=== PATIENT | female | born 1990 | race African-American/Black ===

== ENCOUNTER 2025-05-13 07:58 | Emergency (ER) | payer OTHER, SELFPAY ==
--- OUTSIDE RECORDS SUMMARY | 2025-05-13 08:04 | XMS REPORT | Continuity of Care Document ---
Author Name Unknown Address [address] [facility] [address] [place] [address] [facility] Address [address] [facility] [address] [place] [address] Care Team Providers Care Deck Builder Name Role Phone Earline Franco Primary Care Physician Medications Ordered Medication Name Filled Medication Name Start Date Stop Date Current Medication? Ordering Clinician Indication Dosage Frequency Signature (SIG) Comments Components Source Provera 10 mg tablet 03-05 00:00: 00 Yes 1mg Vincent Fajardo Provera 10 mg tablet 8-28 00:00: 00 Yes 1mg Vincent Fajardo Provera 10 mg tablet 01-03 00:00: 00 Yes 1mg Vincent Fajardo TAKE 1 TABLET TWICE DAILY UNTIL FINISHED. 6-30 00:00: 00 09-24 00:00 :00 No 500 Vincent Fajardo TAKE ONE (1) TABLET(S) BY MOUTH NOW A SINGLE DOSE. IF SYMPTOMS PERSIST AFTER 3 DAYS, MAY TAKE SECOND TABLET. 11-16 00:00: 00 Yes Vincent Fajardo Immunizations Ordered Immunization Name Filled Immunization Name Date Status Comments Source Td (adult) preservative Td (adult) preservative 2024-07-17 00:00:00 Completed Vincent Fajardo Vital Signs Vital Name Observation Time Observation Value Comments Robert bowie BP Systolic 2025-03-05 17:55:00 145 mm[Hg] Jerry Fajardo BP Diastolic 2025-03-05 17:55:00 75 mm[Hg] Bob Fajardo Weight Measured 2025-03-05 17:55:00 174.80 pounds Vincent Fajardo Height Measured 2025-03-05 17:55:00 61.00 inches Vincent F Scotty Body Temperature 2025-03-05 17:55:00 98.10 degrees Vincent F Scotty Heart Rate 2025-03-05 17:55:00 73.00 /min Ny en F Scotty Respiratory Rate 2025-03-05 17:55:00 14.00 /min Vincent F Scotty BP Systolic 2024-07-17 09:29:00 128 mm[Hg] Step hen F Scotty BP Diastolic 2024-07-17 09:29:00 83 mm[Hg] Bob phen F Scotty Weight Measured 2024-07-17 09:29:00 177.20 pounds Vincent F Scotty Height Measured 2024-07-17 09:29:00 61.00 inches Vincent F Scotty Body Temperature 2024-07-17 09:29:00 98.50 degrees Vincent F Scotty Heart Rate 2024-07-17 09:29:00 77.00 /min Ny en F Scotty Respiratory Rate 2024-07-17 09:29:00 17.00 /min Vincent F Scotty BP Systolic 2024-04-02 17:50:00 123 mm[Hg] Step hen F Scotty BP Diastolic 2024-04-02 17:50:00 73 mm[Hg] Bob phen F Scotty Weight Measured 2024-04-02 17:50:00 179.60 pounds Vincent F Scotty Height Measured 2024-04-02 17:50:00 61.00 inches Vincent F Scotty Body Temperature 2024-04-02 17:50:00 98.30 degrees Vincent F Scotty Heart Rate 2024-04-02 17:50:00 64.00 /min Ny en F Scotty Respiratory Rate 2024-04-02 17:50:00 18.00 /min Vincent F Scotty Respiratory Rate 2024-01-18 08:11:00 18.00 /min Vincent F Scotty BP Systolic 2024-01-18 08:11:00 137 mm[Hg] Step hen F Scotty BP Diastolic 2024-01-18 08:11:00 67 mm[Hg] Bob phen F Scotty Weight Measured 2024-01-18 08:11:00 177.60 pounds Vincent F Scotty Height Measured 2024-01-18 08:11:00 61.00 inches Vincent F Scotty Body Temperature 2024-01-18 08:11:00 98.20 degrees Vincent F Scotty Heart Rate 2024-01-18 08:11:00 69.00 /min Ny en F Scotty BP Systolic 2024-01-04 11:24:00 141 mm[Hg] Step hen F Scotty BP Diastolic 2024-01-04 11:24:00 92 mm[Hg] Bob phen F Scotty Weight Measured 2024-01-04 11:24:00 180.40 pounds Vincent F Scotty Height Measured 2024-01-04 11:24:00 61.00 inches Vincent F Scotty Body Temperature 2024-01-04 11:24:00 Vincent F Scotty Heart Rate 2024-01-04 11:24:00 75.00 /min Ny en F Scotty Respiratory Rate 2024-01-04 11:24:00 Vincent F Scotty Heart Rate 2023-02-02 08:25:00 65.00 /min Ny en F Scotty Respiratory Rate 2023-02-02 08:25:00 Vincent F Scotty BP Systolic 2023-02-02 08:25:00 127 mm[Hg] Step hen F Scotty BP Diastolic 2023-02-02 08:25:00 82 mm[Hg] Bob phen F Scotty Weight Measured 2023-02-02 08:25:00 160.80 pounds Vincent F Scotty Height Measured 2023-02-02 08:25:00 61.00 inches Vincent F Scotty Body Temperature 2023-02-02 08:25:00 98.70 degrees Vincent F Scotty BP Systolic 2022-12-08 08:10:00 120 mm[Hg] Step hen F Scotty BP Diastolic 2022-12-08 08:10:00 79 mm[Hg] Bob phen F Scotty Weight Measured 2022-12-08 08:10:00 168.80 pounds Vincent F Scotty Height Measured 2022-12-08 08:10:00 61.00 inches Vincent F Scotty Body Temperature 2022-12-08 08:10:00 98.30 degrees Vincent F Scotty Heart Rate 2022-12-08 08:10:00 71.00 /min Ny en F Scotty Respiratory Rate 2022-12-08 08:10:00 Vincent F Scotty BP Systolic 2022-12-01 08:56:00 133 mm[Hg] Step hen F Scotty BP Diastolic 2022-12-01 08:56:00 81 mm[Hg] oBb Fajardo Weight Measured 2022-12-01 08:56:00 169.20 pounds Vincent Fajardo Height Measured 2022-12-01 08:56:00 61.00 inches Vincent Fajardo Body Temperature 2022-12-01 08:56:00 99.00 degrees Vincent Fajardo Heart Rate 2022-12-01 08:56:00 98.00 /min Ny Fajardo Respiratory Rate 2022-12-01 08:56:00 Vincent Fajardo Encounters Start Date/Time End Date/Time Encounter Type Admission Type Attending [facility] Care Department Encounter ID Source 2025-03-05 17:50:04 2025-03-05 17:50:04 Outpatient SFA SFA [id number] Vincent Fajardo 2025-03-05 00:00:00 2025-03-05 00:00:00 Outpatient Visit SFA [id number] Vincent Fajardo 2024-07-17 09:22:23 2024-07-17 09:22:23 Outpatient SFA [id number] [id number] Vincent Fajardo 2024-07-17 00:00:00 2024-07-17 00:00:00 Outpatient Visit SFA [id number] Vincent Fajardo 2024-04-02 17:44:09 2024-04-02 17:44:09 Outpatient SFA [id number] [id number] Vincent Fajardo 2024-04-02 00:00:00 2024-04-02 00:00:00 Outpatient Visit SFA [id number] Vincent Fajardo 2024-01-18 08:03:40 2024-01-18 08:03:40 Outpatient SFA [id number] [id number] Vincent Fajardo 2024-01-18 00:00:00 2024-01-18 00:00:00 Outpatient Visit SFA [id number] Vincent Fajardo Results Test Description Test Time Test Comments Results Result Co mments Source Vincent FajardoLIPID [id number] 00:00:00* Test Item Value Reference Range Interpretation Comme nts CHOLESTEROL (test code = 2210) 126 MG/DL TRIGLYCERIDES (test code = 2232) 52 MG/DL HDL CHOLESTEROL (test code = 2220) 62 MG/DL CALC LDL CHOL (test code = 2237) 51 MG/DL RISK RATIO LDL/HDL (test cod e = 2238) 0.82 RATIO Vincent FajardoHIV 1/2 4TH GEN, RFLX [id number] 00:00:00* Test Item Value Reference Range Interpretation Comme khushbu HIV 1/2 4TH GEN, RFLX CONF ( test code = 3514) NON-REACTIVE Vincent FajardoHEPATITIS PROFILE (A,B,C)2024-07-18 00:00:00* Test Item Value Reference Range Interpretation Comme nts HEPATITIS A TOTAL AB (test c ode = 2725) REACTIVE HEPATITIS B SURF AG (test co de = 2739) NON-REACTIVE HEP B CORE TOTAL AB (test co de = 2729) NON-REACTIVE HEPATITIS B SURFACE AB (test code = 2737) REACTIVE HEPATITIS C ANTIBODY (test c ode = 4675) NON-REACTIVE INTERPRETATION HEPATITIS A: (test code = 2552) (NOTE) INTERPRETATION HEPATITIS B: (test code = 56058) (NOTE) INTERPRETATION HEPATITIS C: (test code = 09883) (NOTE) Vincent FajardoRPR REFLEX TO T. PALLIDUM - [id number] 00:00:00* Test Item Value Reference Range Interpretation Comme nts RPR (test code = 89351) NON-REACTIVE RPR TITER (test code = 3500) NOT INDIC. TITER Vincent FajardoHEPATITIS A IgM [REFLEX]2024-07-18 00:00:00* Test Item Value Reference Range Interpretation Comme nts HEPATITIS A IgM (test code = 2728) NON-REACTIVE Vincent FajardoCOMPREHENSIVE METABOLIC [id number] 00:00:00* Test Item Value Reference Range Interpretation Comme nts GLUCOSE (test code = 2217) 92 MG/DL BUN (test code = 2208) 8 MG/DL CREATININE (test code = 2214) 0.65 MG/DL eGFR (2020 CKD-EPI) (test code = 28539) 119 ML/MIN/1.73 CALC BUN/CREAT (test code = 2235) 12 RATIO SODIUM (test code = 2231) 140 MEQ/L POTASSIUM (test code = 2228) 4.6 MEQ/L CHLORIDE (test code = 2215) 104 MEQ/L CARBON DIOXIDE (test code = 2206) 24 MEQ/L CALCIUM (test code = 2209) 9.4 MG/DL PROTEIN, TOTAL (test code = 2229) 6.9 G/DL ALBUMIN (test code = 2201) 4.3 G/DL CALC GLOBULIN (test code = 2240) 2.6 G/DL CALC A/G RATIO (test code = 2234) 1.7 RATIO BILIRUBIN, TOTAL (test code = 2207) 0.4 MG/DL ALKALINE PHOSPHATASE (test code = 4) 64 U/L AST (test code = 2218) 16 U/L ALT (test code = 2219) 10 U/L Vincent Adair TEST, THINPREP, [id number] 16:32:10* Test Item Value Reference Range Interpretation Comme nts SOURCE: (test code = 8001) Cervical/Endo cervical SLIDES: (test code = 8011) 1 LMP: (test code = 8021) 12/08/2022 SPECIMEN ADEQUACY: (test code = 85462) (NOTE) Satisfactory for evaluation. Endocervical cells/transformation zone component present. INTERPRETATION: (test code = 46904) NILM/NO EPITH. ABNORMALITY;S EE BELOW -- ---- NEGATIVE FOR INTRAEPITHELIAL LESION OR MALIGNANCY Reactive cellular changes present (NILM). OTHER COMMENTS: (test code = 8081) (NOTE) Trichomonas v aginalis present. SINGLE STAYER OPERATOR: (test code = 8101) ABE Lechuga(ASCP) IAC PATHOLOGIST INTERPRETATION BY: (test code = 8122) Tia Evans LOCATION: (test code = 60417) (NOTE) Specimens proces sed and interpreted at [facility], [address] [place] [address], , CLIA: [id number] CPT: (test code = 8140) (NOTE) 79404, 34086 UNL ESS OTHERWISE INDICATED, COMPUTER AIDED AND SINGLE STAYER OPERATOR SCREENING PERFORMED. The Pap test is a screening test with an inherent, but low probability of error. Your patient should be reminded to consult you immediately if she experiences any suspicious signs or symptoms, regardless of her Pap test result. An alternate report format containing images or consolidated prior Pap history is available as applicable. HPV HIGH RISK WITH GENOTYPE, [id number] 16:25:07* Test Item Value Reference Range Interpretation Comme nts HPV HIGH RISK INTERP (test code = 26818) NEGATIVE NEGATIVE HPV 16 (test code = 38875) NEGATIVE HPV 18 (test code = 37039) NEGATIVE HPV, HR, OTHER GENOTYPES (test code = 75492) NEGATIVE Testing methodol ogy is real-time PCR utilizing hydrolysis probes with the Paulina Mary Ellen 4800 system. The test individually detects genotypes 16 and 18, as well as the other 12 high risk types (31,33,35,39,45,51,52,56 ,58,59,66,68). The expected result is negative. A negative result does not rule out the presence of HPV not included in the genotype set, a low level of infection or specimen sampling error. UNLESS OTHERWISE INDICATED, ALL TESTING PERFORMED AT [facility] [address] [place] [address] [employer] DRIVER/TEACHER ASSISTANT: ASHANTI GARCIA M.D. CLIA NUMBER [id number] [place] [id number] PAP TEST, THINPREP, [id number] 00:00:00* Test Item Value Reference Range Interpretation Comme nts SOURCE: (test code = 8001) Cervical/Endo cervic al SLIDES: (test code = 8011) 1 LMP: (test code = 8021) 12/08/2022 SPECIMEN ADEQUACY: (test code = 17230) (NOTE) INTERPRETATION: (test code = 11213) NILM/NO EPITH. ABNORMALITY;SEE BELOW OTHER COMMENTS: (test code = 8081) (NOTE) SINGLE STAYER OPERATOR: (test code = 8101) ABE Lechuga(ASCP)[facility] PATHOLOGIST INTERPRETATION BY: (test code = 8122) Tia Evans LOCATION: (test code = 28122) (NOTE) CPT: (test code = 8140) (NOTE) Vincent Yu AustinHPV HIGH RISK WITH GENOTYPE, [id number] 00:00:00* Test Item Value Reference Range Interpretation Comme nts HPV HIGH RISK INTERP (test c ode = 46657) NEGATIVE HPV 16 (test code = 75398) NEGATIVE HPV 18 (test code = 48522) NEGATIVE HPV, HR, OTHER GENOTYPES (te st code = 27714) NEGATIVE PDFE (test code = PDFReport) PDF Vincent FajardoPAP TEST, THINPREP, [id number] 00:00:00* Test Item Value Reference Range Interpretation Comme nts SOURCE: (test code = 8001) Cervical/Endo cervic al SLIDES: (test code = 8011) 1 LMP: (test code = 8021) 12/08/2022 SPECIMEN ADEQUACY: (test code = 79738) (NOTE) INTERPRETATION: (test code = 39145) NILM/NO EPITH. ABNORMALITY;SEE BELOW OTHER COMMENTS: (test code = 8081) (NOTE) SINGLE STAYER OPERATOR: (test code = 8101) ABE Lechuga(ASCP)[facility] PATHOLOGIST INTERPRETATION BY: (test code = 8122) Tia Evans LOCATION: (test code = 31905) (NOTE) CPT: (test code = 8140) (NOTE) Vincent Yu AustinHPV HIGH RISK WITH GENOTYPE, [id number] 00:00:00* Test Item Value Reference Range Interpretation Comme nts HPV HIGH RISK INTERP (test c ode = 88188) NEGATIVE HPV 16 (test code = 49994) NEGATIVE HPV 18 (test code = 21222) NEGATIVE HPV, HR, OTHER GENOTYPES (te st code = 65363) NEGATIVE PDFE (test code = PDFReport) PDF Vincent FajardoPAP TEST, THINPREP, [id number] 00:00:00* Test Item Value Reference Range Interpretation Comme nts SOURCE: (test code = 8001) Cervical/Endo cervic al SLIDES: (test code = 8011) 1 LMP: (test code = 8021) 12/08/2022 SPECIMEN ADEQUACY: (test code = 58556) (NOTE) INTERPRETATION: (test code = 94376) NILM/NO EPITH. ABNORMALITY;SEE BELOW OTHER COMMENTS: (test code = 8081) (NOTE) SINGLE STAYER OPERATOR: (test code = 8101) ABE Lechuga(ASCP)IAC PATHOLOGIST INTERPRETATION BY: (test code = 8122) Tia Evans LOCATION: (test code = 39896) (NOTE) CPT: (test code = 8140) (NOTE) Vincent FajardoHPV HIGH RISK WITH GENOTYPE, [id number] 00:00:00* Test Item Value Reference Range Interpretation Comme nts HPV HIGH RISK INTERP (test c ode = 96497) NEGATIVE HPV 16 (test code = 30940) NEGATIVE HPV 18 (test code = 16624) NEGATIVE HPV, HR, OTHER GENOTYPES (te st code = 33486) NEGATIVE PDFE (test code = PDFReport) PDF Vincent FajardoPAP TEST, THINPREP, [id number] 00:00:00* Test Item Value Reference Range Interpretation Comme nts SOURCE: (test code = 8001) Cervical/Endo cervic al SLIDES: (test code = 8011) 1 LMP: (test code = 8021) 12/08/2022 SPECIMEN ADEQUACY: (test code = 53061) (NOTE) INTERPRETATION: (test code = 13700) NILM/NO EPITH. ABNORMALITY;SEE BELOW OTHER COMMENTS: (test code = 8081) (NOTE) SINGLE STAYER OPERATOR: (test code = 8101) ABE Lechuga(ASCP)IAC PATHOLOGIST INTERPRETATION BY: (test code = 8122) Tia Evans LOCATION: (test code = 98843) (NOTE) CPT: (test code = 8140) (NOTE) Vincent FajardoHPV HIGH RISK WITH GENOTYPE, [id number] 00:00:00* Test Item Value Reference Range Interpretation Comme nts HPV HIGH RISK INTERP (test c ode = 73387) NEGATIVE HPV 16 (test code = 02019) NEGATIVE HPV 18 (test code = 57764) NEGATIVE HPV, HR, OTHER GENOTYPES (te st code = 80245) NEGATIVE PDFE (test code = PDFReport) PDF Vincent Yu AustinCT/NG, TMA, [id number] 00:00:00* Test Item Value Reference Range Interpretation Comme nts CHLAMYDIA, NAAT, URINE (test code = 45244) NEGATIVE GONORRHEA, NAAT, URINE (test code = 45803) NEGATIVE Vincent Yu AustinCT/NG, TMA, [id number] 00:00:00* Test Item Value Reference Range Interpretation Comme nts CHLAMYDIA, NAAT, URINE (test code = 06123) NEGATIVE GONORRHEA, NAAT, URINE (test code = 45153) NEGATIVE Vincent FajardoCT/NG, TMA, [id number] 00:00:00* Test Item Value Reference Range Interpretation Comme nts CHLAMYDIA, NAAT, URINE (test code = 24984) NEGATIVE GONORRHEA, NAAT, URINE (test code = 69741) NEGATIVE Vincent Yu AustinCT/NG, TMA, [id number] 00:00:00* Test Item Value Reference Range Interpretation Comme nts CHLAMYDIA, NAAT, URINE (test code = 41294) NEGATIVE GONORRHEA, NAAT, URINE (test code = 37149) NEGATIVE Vincent [id number] 00:00:00* Test Item Value Reference Range Interpretation Comme nts RPR RESULT (test code = 3501) NON-REACTIVE RPR TITER (test code = 3500) NOT INDIC. TITER Vincent FajardoACUTE HEPATITIS [id number] 00:00:00* Test Item Value Reference Range Interpretation Comme nts HEPATITIS A IgM (test code = 63099) NON-REACTIVE HEPATITIS B CORE IgM (test c ode = 4644) NON-REACTIVE HEPATITIS B SURF AG (test co de = 2739) NON-REACTIVE HEPATITIS C ANTIBODY (test c ode = 4617) NON-REACTIVE INTERPRETATION HEPATITIS A: (test code = 2552) (NOTE) INTERPRETATION HEPATITIS B: (test code = 23863) (NOTE) INTERPRETATION HEPATITIS C: (test code = 39258) (NOTE) Vincent FajardoVAGINAL PATHOGENS DNA PANEL [ADDED]2023-02-03 00:00:00* Test Item Value Reference Range Interpretation Comme nts JJ SPECIES (test code = ) NEGATIVE G. VAGINALIS (test code = 86344) NEGATIVE T. VAGINALIS (test code = 62223) POSITIVE Vincent FajardoHIV 1/2 4TH GEN, RFLX [id number] 00:00:00* Test Item Value Reference Range Interpretation Comme nts HIV 1/2 4TH GEN, RFLX CONF ( test code = 3514) NON-REACTIVE Vincent [id number] 00:00:00* Test Item Value Reference Range Interpretation Comme nts RPR RESULT (test code = 3501) NON-REACTIVE RPR TITER (test code = 3500) NOT INDIC. TITER Vincent FajardoACUTE HEPATITIS [id number] 00:00:00* Test Item Value Reference Range Interpretation Comme nts HEPATITIS A IgM (test code = 39401) NON-REACTIVE HEPATITIS B CORE IgM (test c ode = 4644) NON-REACTIVE HEPATITIS B SURF AG (test co de = 2739) NON-REACTIVE HEPATITIS C ANTIBODY (test c ode = 4675) NON-REACTIVE INTERPRETATION HEPATITIS A: (test code = 2552) (NOTE) INTERPRETATION HEPATITIS B: (test code = 71249) (NOTE) INTERPRETATION HEPATITIS C: (test code = 91247) (NOTE) Vincent Yu AustinVAGINAL PATHOGENS DNA PANEL [ADDED]2023-02-03 00:00:00* Test Item Value Reference Range Interpretation Comme nts JJ SPECIES (test code = ) NEGATIVE G. VAGINALIS (test code = 75309) NEGATIVE T. VAGINALIS (test code = 32024) POSITIVE Vincent FajardoHIV 1/2 4TH GEN, RFLX [id number] 00:00:00* Test Item Value Reference Range Interpretation Comme nts HIV 1/2 4TH GEN, RFLX CONF ( test code = 3514) NON-REACTIVE Vincent Yu [id number] 00:00:00* Test Item Value Reference Range Interpretation Comme nts RPR RESULT (test code = 3501) NON-REACTIVE RPR TITER (test code = 3500) NOT INDIC. TITER Vincent FajardoACUTE HEPATITIS [id number] 00:00:00* Test Item Value Reference Range Interpretation Comme nts HEPATITIS A IgM (test code = 14251) NON-REACTIVE HEPATITIS B CORE IgM (test c ode = 4644) NON-REACTIVE HEPATITIS B SURF AG (test co de = 2739) NON-REACTIVE HEPATITIS C ANTIBODY (test c ode = 4675) NON-REACTIVE INTERPRETATION HEPATITIS A: (test code = 2552) (NOTE) INTERPRETATION HEPATITIS B: (test code = 47529) (NOTE) INTERPRETATION HEPATITIS C: (test code = 60799) (NOTE) Vincent aFjardoVAGINAL PATHOGENS DNA PANEL [ADDED]2023-02-03 00:00:00* Test Item Value Reference Range Interpretation Comme nts JJ SPECIES (test code = ) NEGATIVE G. VAGINALIS (test code = ) NEGATIVE T. VAGINALIS (test code = ) POSITIVE Vincent FajardoHIV 1/2 4TH GEN, RFLX [id number] 00:00:00* Test Item Value Reference Range Interpretation Comme nts HIV 1/2 4TH GEN, RFLX CONF ( test code = 3514) NON-REACTIVE Vincent [id number] 00:00:00* Test Item Value Reference Range Interpretation Comme nts RPR RESULT (test code = 3501) NON-REACTIVE RPR TITER (test code = 3500) NOT INDIC. TITER Vincent FajardoACUTE HEPATITIS [id number] 00:00:00* Test Item Value Reference Range Interpretation Comme nts HEPATITIS A IgM (test code = 34391) NON-REACTIVE HEPATITIS B CORE IgM (test c ode = 4644) NON-REACTIVE HEPATITIS B SURF AG (test co de = 2739) NON-REACTIVE HEPATITIS C ANTIBODY (test c ode = 4675) NON-REACTIVE INTERPRETATION HEPATITIS A: (test code = 2552) (NOTE) INTERPRETATION HEPATITIS B: (test code = 68715) (NOTE) INTERPRETATION HEPATITIS C: (test code = 24874) (NOTE) Vincent FajardoVAGINAL PATHOGENS DNA PANEL [ADDED]2023-02-03 00:00:00* Test Item Value Reference Range Interpretation Comme nts JJ SPECIES (test code = ) NEGATIVE G. VAGINALIS (test code = 45982) NEGATIVE T. VAGINALIS (test code = 90467) POSITIVE Vincent FajardoHIV 1/2 4TH GEN, RFLX [id number] 00:00:00* Test Item Value Reference Range Interpretation Comme nts HIV 1/2 4TH GEN, RFLX CONF ( test code = 3514) NON-REACTIVE Vincent Fajardo Notes Date/Time Note Provider Source Vincent Alvarenga [facility]24-[facility]-14 [facility]:00:00 [facility]
[2025-05-13] MEDS ORDERED: FAMOTIDINE 20 MG/2 ML VIAL IV ONE (08:52)
[2025-05-13] MEDS ORDERED: ONDANSETRON 4 MG/2 ML VIAL ONE (08:52)
[2025-05-13] MEDS ORDERED: KETOROLAC 30 MG/ML INJ ONE (08:52)
[2025-05-13] MEDS ORDERED: NA CHLORIDE 0.9% 1,000 ML ONE (08:53)
--- NOTE | 2025-05-13 09:00 | RAD REPORT ---
EXAMINATION: US Abdomen Exam Limited CLINICAL HISTORY: [facility] MAIN Y ABD PAIN Bed Name: 19 COMPARISON: None. TECHNIQUE: Limited upper abdominal grayscale and color flow sonographic images. FINDINGS: Gallbladder: Single shadowing calculus in the neck. Mild sludge. Normal gallbladder distention. No pe richolecystic fluid. No wall thickening or edema. Bile ducts: No intrahepatic or extrahepatic biliary dilatation. Common bile duct measures 3 mm. Liver: Visualized portions of the liver demonstrate normal echogenicity with no suspicious findings. Fluid: No ascites. IMPRESSION: Cholelithiasis. No other sonographic findings to suggest acute cholecystitis.
[2025-05-13 09:16] LABS: Absolute Lymphocytes (CBC) 0.8 K/uL (0.7-4.9); Hematocrit 37.3 % (36.0-45.0); Hemoglobin 12.8 g/dL (12.0-15.0); MCH 29.5 pg (27.0-35.0); MCHC 34.4 g/dL (32.0-36.0); MCV 85.7 fL (80-100); MPV 7.7 fL (7.6-11.3); Nucleated RBC Absolute Count 0.0 (0-0); Nucleated Red Blood Cells % 0.1 % (0-0); RBC Red Blood Cell Count 4.36 M/uL (3.86-4.86); White Blood Count 6.30 thou/uL (4.3-10.9)
[2025-05-13 09:30] LABS: AST/SGOT 11 U/L (15-37); Albumin 3.6 g/dL (3.4-5.0); Albumin/Globulin Ratio 1.0 (1.1-1.8); Alkaline Phosphatase 64 U/L (45-117); Anion Gap 9.8 mEq/L (5.0-15.0); BUN Blood Urea Nitrogen 11 mg/dL (7-18); Globulin 3.7 g/dL (2.3-3.5); Glucose Level 105 mg/dL (74-106); Lipase 29 U/L (13-75); Potassium 3.8 mEq/L (3.5-5.1)
[2025-05-13 09:32] LABS: ALT/SGPT < 14 U/L (13-56)
[2025-05-13 10:37] LABS: Blood Morphology Comment NOT SEEN (NOT SEEN); White Blood Cell Scan OK (OK)
--- NOTE | 2025-05-13 11:00 | EDPHYS ---
Physician Documentation [facility] Name: Danyell Huerta Age: 35 yrs Sex: Female : 1990 Arrival Date: 05/13/2025 Time: 07:58 Bed 19 Private MD: ED Physician Jordan Mcdonald HPI: 05/13 08:51 This 35 yrs old Black Female presents to ER via Ambulatory with complaints of Abdominal kb Pain, Back Pain, Chest Pain. 08:51 Patient is a 35-year-old female who presents for epigastric pain that radiates to the kb back that started at 1 AM. States she has had this pain twice in the past but has never had it evaluated. Reports nausea. Denies vomiting, diarrhea, fever.. Historical: - Allergies: 08:15 No Known Allergies; jp5 - PMHx: 08:15 Migraines; jp5 - Immunization history:: Adult Immunizations up to date. - Infectious Disease History:: Denies. - Social history:: Smoking status: Patient denies any tobacco usage or history of. Patient/guardian denies using alcohol, street drugs, IV drugs, tobacco products. ROS: 08:51 Constitutional: As per HPI kb Exam: 08:51 Constitutional: This is a well developed, well nourished patient who is awake, alert, kb and in no acute distress. Head/Face: Normocephalic, atraumatic. ENT: Moist Mucous membranes Cardiovascular: Regular rate Respiratory: Respirations even and unlabored. No increased work of breathing. Talking in full sentences Skin: Warm, dry with normal turgor. Normal color. MS/ Extremity: Pulses equal, no cyanosis. Neurovascular intact. Full, normal range of motion. Neuro: Awake and alert, GCS 15, oriented to person, place, time, and situation. 08:51 Abdomen/GI: Inspection: abdomen appears normal, Bowel sounds: normal, Palpation: soft, in all quadrants, mild abdominal tenderness, in the epigastric area, Vital Signs: 08:15 BP 146 / 75; Pulse 75; Resp 18; Temp 98.9(O); Pulse Ox 99% on R/A; Weight 77.11 kg; jp5 Height 5 ft. 4 in. ; Pain 8/10; 09:00 BP 155 / 83; Pulse 71; Resp 18; Pulse Ox 98% on R/A; jp5 10:00 BP 131 / 63; Pulse 64; Resp 18; Pulse Ox 100% on R/A; jp5 11:00 BP 136 / 77; Pulse 71; Resp 18; Temp 97.9(O); Pulse Ox 100% ; Pain 2/10; jp5 08:15 Body Mass Index 29.18 (77.11 kg, 162.56 cm) jp5 08:15 Pain Scale: Adult jp5 11:00 Pain Scale: Adult jp5 MDM: 08:17 Medical Screening Exam initiated kb 10:59 Differential diagnosis: cholecystitis, Cholelithiasis, gastritis, gastroesophageal kb reflux disease, non-specific abd pain, pancreatitis. Data reviewed: vital signs, nurses notes. Counseling: I had a detailed discussion with the patient and/or guardian regarding the historical points, exam findings, and any diagnostic results supporting the discharge/admit diagnosis, lab results, radiology results, the need for outpatient follow up, a general surgeon, a shoe laster, to return to the emergency department if symptoms worsen or persist or if there are any questions or concerns that arise at home. 05/13 08:17 Order name: CBC with Diff; Complete Time: 10:40 kb 05/13 08:17 Order name: CMP; Complete Time: 09:32 kb 05/13 08:17 Order name: Lipase; Complete Time: 09:32 kb 05/13 09:23 Order name: CBC Smear Scan; Complete Time: 10:40 EDMS 05/13 08:17 Order name: Abdomen Limited US; Complete Time: 09:00 kb 05/13 08:17 Order name: IV Saline Lock; Complete Time: 08:50 kb 05/13 08:17 Order name: Labs collected and sent; Complete Time: 08:50 kb Administered Medications: 08:55 Drug: Famotidine IVP 20 mg IVP once; dilute with 10 mL 0.9% NaCl; give over 2 minutes jp5 Route: IVP; Site: left antecubital; 09:25 Follow up: Response: No adverse reaction jp5 08:55 Drug: TORadol - Ketorolac IVP 15 mg IVP once Route: IVP; Site: left antecubital; jp5 09:25 Follow up: Response: No adverse reaction; Pain is decreased jp5 08:55 Drug: Ondansetron IVP 4 mg IVP once; over 2 minutes Route: IVP; Site: left antecubital; jp5 09:25 Follow up: Response: No adverse reaction jp5 08:55 Drug: NS 0.9% IV 1000 ml IV at 1 bolus Per protocol; to be given as a bolus over 60 jp5 minutes Route: IV; Rate: 1 bolus; Site: left antecubital; 09:55 Follow up: Response: No adverse reaction; IV Status: Completed infusion; IV converted jp5 to saline lock; IV Intake: 1000ml Disposition: 14:54 I was immediately available on-site in the Emergency Department for consultation in the ms3 care of the patient. Disposition Summary: 05/13/25 10:59 Discharge Ordered Notes: Location: Home kb Condition: Stable kb Diagnosis - Other cholelithiasis without obstruction kb Followup: kb - With: Emergency Department - When: As needed - Reason: Worsening of condition Followup: kb - With: Private Physician - When: 2 - 3 days - Reason: Recheck today's complaints, Continuance of care, Re-evaluation by your physician Discharge Instructions: - Discharge Summary Sheet kb - Cholelithiasis, [id number] kb Forms: - Medication Reconciliation Form kb - Antibiotic Education kb - Prescription Opioid Use kb - Patient Portal Instructions kb - Leadership Thank You Letter kb Prescriptions: - Zofran 4 mg Oral tablet - take 1 tablet ORAL route every 6 hours As needed; 12 tablet; Refills: 0, kb Product Selection Permitted - Pepcid 20 mg Oral Tablet - take 1 tablet ORAL route once daily for 10 days; 10 tablet; Refills: 0, Product kb Selection Permitted - dicyclomine 20 mg Oral tablet - take 1 tablet ORAL route 4 times per day As needed; 20 tablet; Refills: 0, kb Product Selection Permitted Signatures: Dispatcher [employer] Kimberly Winn, Jordan Gu DO DO ms3 Layne Briseno, RN RN jp5
--- NOTE | 2025-05-13 11:00 | ER ---
Nurse's Notes [facility] Name: Danyell Huerta Age: 35 yrs Sex: Female : 1990 Arrival Date: 05/13/2025 Time: 07:58 Bed 19 Private MD: Diagnosis: Other cholelithiasis without obstruction Presentation: 05/13 08:15 Chief complaint: Patient states: 1AM this morning, pt woke up with upper mid 8/10 abd jp5 pain. Denies N/V/D. Coronavirus screen: Client denies travel out of the [place] in the last 14 days. At this time, the client does not indicate any symptoms associated with coronavirus-19. Ebola Screen: No symptoms or risks identified at this time. Initial Sepsis Screen: Does the patient meet any 2 criteria? No. Patient's initial sepsis screen is negative. Does the patient have a suspected source of infection? No. Patient's initial sepsis screen is negative. Risk Assessment: Do you want to hurt yourself or someone else? Patient reports no desire to harm self or others. Onset of symptoms was May 13, 2025. 08:15 Method Of Arrival: Ambulatory jp5 08:15 Acuity: BRICE 3 jp5 Triage Assessment: 08:15 General: Appears in no apparent distress. Behavior is calm, cooperative, appropriate jp5 for age. Pain: Complains of pain in epigastric area Pain currently is 8 out of 10 on a pain scale. Quality of pain is described as. GI: Patient currently denies diarrhea, nausea, vomiting. Historical: - Allergies: 08:15 No Known Allergies; jp5 - PMHx: 08:15 Migraines; jp5 - Immunization history:: Adult Immunizations up to date. - Infectious Disease History:: Denies. - Social history:: Smoking status: Patient denies any tobacco usage or history of. Patient/guardian denies using alcohol, street drugs, IV drugs, tobacco products. Screenin:15 [facility] ED Fall Risk Assessment (Adult) History of falling in the last 3 months, jp5 including since admission No falls in past 3 months (0 pts) Confusion or Disorientation No (0 pts) Intoxicated or Sedated No (0 pts) Impaired Gait No (0 pts) Mobility Assist Device Used No (0 pt) Altered Elimination No (0 pt) Score/Fall Risk Level 0 - 2 = Low Risk Oriented to surroundings, Maintained a safe environment, Educated pt \T\ family on fall prevention, incl call for assistance when getting out of bed, Assessed \T\ reinforced patient's understanding of fall precautions, Provided non-skid footwear, Hourly rounding (assess needs \T\ fall precautionary measures) done, Used ambulatory aids as needed (educated on \T\ assisted with), Used gait belt as appropriate. Abuse screen: Denies threats or abuse. Denies injuries from another. Nutritional screening: No deficits noted. Tuberculosis screening: No symptoms or risk factors identified. Assessment: 08:15 General: view triage . jp5 Vital Signs: 08:15 BP 146 / 75; Pulse 75; Resp 18; Temp 98.9(O); Pulse Ox 99% on R/A; Weight 77.11 kg; jp5 Height 5 ft. 4 in. ; Pain 8/10; 09:00 BP 155 / 83; Pulse 71; Resp 18; Pulse Ox 98% on R/A; jp5 10:00 BP 131 / 63; Pulse 64; Resp 18; Pulse Ox 100% on R/A; jp5 11:00 BP 136 / 77; Pulse 71; Resp 18; Temp 97.9(O); Pulse Ox 100% ; Pain 2/10; jp5 08:15 Body Mass Index 29.18 (77.11 kg, 162.56 cm) jp5 08:15 Pain Scale: Adult jp5 11:00 Pain Scale: Adult jp5 ED Course: 08:03 Patient arrived in ED. cj3 08:04 Kimberly Villegas FNP-C [facility]. kb 08:04 Jordan Mcdonald DO is Attending Physician. kb 08:15 Arm band placed on right wrist. jp5 08:15 Patient has correct armband on for positive identification. Bed in low position. Call jp5 light in reach. Side rails up X 1. Provided Education on: call light use. 08:15 No provider procedures requiring assistance completed. jp5 08:19 Triage completed. jp5 08:45 Inserted saline lock: 20 gauge in left antecubital area, using aseptic technique. Blood jp5 collected. Flushed with 10 mL NS. 08:49 Abdomen Limited US In Process Unspecified. EDMS 08:50 Layne Briseno, RN is Primary Nurse. jp5 08:50 CBC with Diff Sent. jp5 08:50 CMP Sent. jp5 08:50 Lipase Sent. jp5 08:55 Warm blanket given. jp5 11:15 IV discontinued, intact, bleeding controlled, No redness/swelling at site. Pressure jp5 dressing applied. Administered Medications: 08:55 Drug: Famotidine IVP 20 mg IVP once; dilute with 10 mL 0.9% NaCl; give over 2 minutes jp5 Route: IVP; Site: left antecubital; 09:25 Follow up: Response: No adverse reaction jp5 08:55 Drug: TORadol - Ketorolac IVP 15 mg IVP once Route: IVP; Site: left antecubital; jp5 09:25 Follow up: Response: No adverse reaction; Pain is decreased jp5 08:55 Drug: Ondansetron IVP 4 mg IVP once; over 2 minutes Route: IVP; Site: left antecubital; jp5 09:25 Follow up: Response: No adverse reaction jp5 08:55 Drug: NS 0.9% IV 1000 ml IV at 1 bolus Per protocol; to be given as a bolus over 60 jp5 minutes Route: IV; Rate: 1 bolus; Site: left antecubital; :55 Follow up: Response: No adverse reaction; IV Status: Completed infusion; IV converted jp5 to saline lock; IV Intake: 1000ml Medication: 08:15 VIS not applicable for this client. jp5 Intake: 09:55 IV: 1000ml; Total: 1000ml. jp5 Outcome: 10:59 Discharge ordered by MD. lama 11:15 Discharged to home ambulatory, with family, jp5 11:15 Condition: stable 11:15 Discharge instructions given to patient, family, Instructed on discharge instructions, follow up and referral plans. medication usage, Demonstrated understanding of instructions, follow-up care, medications, Prescriptions given X 3, 11:23 Patient left the ED. jp5 Signatures: Dispatcher [employer] EDMS Kimberly Villegas, TK GUPTA-Layne Grewal RN RN jp5 Albertina Lamb cj3
[2025-05-13 11:45] VITALS: O2SAT 100
[2025-05-13 11:46] VITALS: BP 136/77; TEMP 97.9
== END 2025-05-13 11:23 | disposition home or self-care (01) ==
LOC: ER 07:58
DX: K80.80 Other cholelithiasis without obstruction (principal)
CPT/HCPCS: 36415; 76705; 80053; 83690; 85025; 96361; 96374; 96375; 99284; J1885; J2405; J7030